=== PATIENT | male | born 1950 | race Caucasian/White ===

== ENCOUNTER 2019-05-03 02:35 | Inpatient (IN) | payer MEDICARE ==
[~2019-05-03] VITALS: Ht 177.8 cm; Wt 122.5 kg
[2019-05-03] MEDS ORDERED: MAGNESIUM HYDROXIDE 2,400 MG/30 ML ORAL.SUSP. PO PRN (03:00)
[2019-05-03] MEDS ORDERED: METHYL SALICYLATE/MENTHOL TOPICAL OINTMENT 57GM TUBE. TP PRN (03:00)
[2019-05-03] MEDS ORDERED: MAG HYDROX/AL HYDROX/SIMETH 30 ML ORAL.SUSP PO PRN (03:00)
[2019-05-03] MEDS ORDERED: ACETAMINOPHEN 325 MG TABLET PO PRN (03:30)
[2019-05-03] MEDS ORDERED: ALBUTEROL SULFATE 2.5 MG/3 ML NEBU. IH PRN (03:30)
[2019-05-03] MEDS ORDERED: DEXTROSE 50% 25 GM / 50ML DISP.SYRIN. IV PRN ×3 (03:30→13:00)
[2019-05-03] MEDS ORDERED: POTASSIUM CHLORIDE 20 MEQ TABLET.ER. PO PRN (03:30)
[2019-05-03 03:38] VITALS: BP 160/90
[2019-05-03 04:01] LABS: BILIRUBIN,URINE NEG (NEG); CLARITY,URINE HAZY; COLOR,URINE YELLOW; GLUCOSE,URINE NEG (NEG); NITRITE,URINE POS (NEG); RBC,URINE OCC /HPF (0-2); UROBILINOGEN,URINE 0.2 mg/dL (0.2 mg/dL); WBC,URINE >40 /HPF (0-4)
[2019-05-03 04:02] LABS: BACTERIA,URINE MANY /HPF (0-FEW); SQUAMOUS EPITHELIAL CELL,UR OCC /LPF
[2019-05-03] MEDS ORDERED: OMEP40CA45 PO (04:13)
[2019-05-03] MEDS ORDERED: MELO7.5T29 PO (04:13)
[2019-05-03] MEDS ORDERED: FURO40TA4 PO (04:13)
[2019-05-03] MEDS ORDERED: POTA20TA4 PO (04:13)
[2019-05-03] MEDS ORDERED: ALBU2.5V8 IH (04:13)
[2019-05-03] MEDS ORDERED: ACET325T9 PO (04:13)
[2019-05-03] MEDS ORDERED: ASPI-612 PO (04:13)
[2019-05-03] MEDS ORDERED: ALPR0.5T6 PO (04:13)
[2019-05-03] MEDS ORDERED: METF10007 PO (04:13)
[2019-05-03] MEDS ORDERED: ESCITALOPRAM OX20 MG PO (04:13)
[2019-05-03] MEDS ORDERED: GABA600T7 PO (04:13)
[2019-05-03] MEDS ORDERED: ATEN50TA PO (04:13)
[2019-05-03] MEDS ORDERED: MAGN400T5 PO (04:13)
[2019-05-03] MEDS ORDERED: LISI-334 PO (04:13)
[2019-05-03] MEDS ORDERED: IRON1TAB PO (04:13)
[2019-05-03] MEDS ORDERED: PRIM50TA24 PO (04:14)
[2019-05-03] MEDS ORDERED: INSU100I13 SQ (04:14)
[2019-05-03] MEDS ORDERED: TAMS0.4C97 PO (04:14)
[2019-05-03] MEDS ORDERED: TIZA4TAB2 PO (04:14)
--- NOTE | 2019-05-03 04:14 | NUR ---
Admission Note with Justification for Admission to [facility] Patient admitted to [facility] for protective oversight for emergency stabilization of acute psychiatric crisis. Pt admitted from: Hospital ER Mode of arrival: EMS Accompanied By: EMS Precipitating behaviors that initiated intake and admission: PT made SI statements but then retracted them feels very depressed and sad, having difficulty because he cannot do things he used to do has had significant increases in his weakness over the recent past. Wants to get help to get better and feel better. Description of failure of out patient attempts at stabilization in previous setting list behavior and medication trials: Attempted to adjust meds and do therapy. Behaviors and assessment findings upon admission: Anxious but cooperative on admit. Denies SI Plan: Admit for protective oversight for adjustment and stabilization of medications, behaviors and mood. Intense treatment regimen including groups, medication adjustments, therapy, consistent regimen for ADL's, self care, and sleep hygiene. Daily monitoring by Inpatient staff, Psychiatry, and Medical Physician.
[2019-05-03] MEDS: ALPRAZolam 0.5 MG TABLET PO PRN ×3 (05:02→14:01)
[2019-05-03] MEDS: PRIMIDONE 50 MG TABLET PO SCH ×2 (05:03→20:21)
[2019-05-03] MEDS: MELOXICAM 7.5 MG TABLET PO SCH ×2 (05:03→20:20)
[2019-05-03] MEDS: tiZANidine 4 MG TABLET. PO SCH ×2 (05:04→20:21)
--- NOTE | 2019-05-03 05:48 | NUR ---
Nursing Note Pt dozed off briefly, then awoke complaining that he had not had any medications since he left his home at 130 pm the previous day. Told the patient that we were working on his meds and orders but that there was a process that involves patient safety with medication administration. Educated him on the fact that orders and meds must be carefully approved by pharmacy department, and that their is only 1 on duty for both hospitals. I graciously asked him to be patient with us because the process takes time since he was admitted after hours. We are at the mercy of other departments and it is unsafe to jean-baptiste. Meds were ordered and approved and his night meds were given early in the am. Now patient complains of feeling sweaty with cramping to his legs. Blood sugar 122 at this time. Snack given. Also patient stated during the admission process that he was exploring the option of going to [facility] in [place] but they refused him due to age and medical concerns, he started to get impatient and belligerent with the staff during shift change because the process was taking to long in his opinion. Then his had threatened to take him AMA but the ED told him they would dispatch police to his home and take him back to the hospital to admit him involuntarily to the [facility] on a hold with a court order. I explained to him that we had no control over the delays in care from other facilities, and that once we received the call, the process progressed quickly on our end and his admit was approved within a short time frame. He seems to understand once processes were explained, although the patient seems to perseverate on his medical history and the fact that his delay medications were the reason he was still awake in the first place. I validated his feelings and listened to his complaints but was also firm with him regarding how things work as an inpatient.
[2019-05-03 06:01] VITALS: BP 161/80
[2019-05-03 06:40] LABS: BASO % 1 % (0-3); EOS # 0.1 x10^3/uL (0.0-0.7); EOS % 2 % (0-3); HEMATOCRIT 41.2 % (39.0-53.0); HEMOGLOBIN 13.4 g/dL (13.0-17.5); LYMPH # 2.1 x10^3/uL (1.0-4.8); LYMPH % 30 % (24-48); MEAN CORPUSCULAR HEMOGLOBIN 27 pg (25-35); MEAN CORPUSCULAR HGB CONC 33 g/dL (31-37); MEAN CORPUSCULAR VOLUME 84 fL (79-100); MONO # 0.5 x10^3/uL (0.0-1.1); MONO % 7 % (0-9); NEUT # 4.1 x10^3uL (1.8-7.7); NEUT % 60 % (31-73); PLATELET COUNT 184 x10^3/uL (140-400); RED BLOOD COUNT 4.91 x10^6/uL (4.30-5.70); RED CELL DISTRIBUTION WIDTH 16.2 % (11.5-14.5); WHITE BLOOD COUNT 6.9 x10^3/uL (4.0-11.0)
[2019-05-03 06:54] LABS: ALBUMIN 3.7 g/dL (3.4-5.0); ALBUMIN/GLOBULIN RATIO 1.1 (1.0-1.7); CREATININE 0.8 mg/dL (0.7-1.3); GFR 96.4; MAGNESIUM 1.5 mg/dL (1.8-2.4); POTASSIUM 4.1 mmol/L (3.5-5.1); TOTAL PROTEIN 7.2 g/dL (6.4-8.2)
[2019-05-03] MEDS: INSULIN LISPRO 300 UNITS/3 ML VIAL. SQ SCH ×3 (08:00→17:00)
[2019-05-03] MEDS ORDERED: metFORMIN 500 MG TABLET PO ONE (08:00)
[2019-05-03] MEDS: ATENOLOL 50 MG TABLET PO SCH (08:29)
[2019-05-03] MEDS: GABAPENTIN 300 MG CAPSULE. PO SCH ×3 (08:29→20:19)
[2019-05-03] MEDS: PANTOPRAZOLE 40 MG TABLET. PO SCH (08:29)
[2019-05-03] MEDS: FUROSEMIDE 40 MG TABLET PO SCH (08:30)
[2019-05-03] MEDS: MAGNESIUM OXIDE 400 MG TABLET PO SCH ×3 (08:30→20:19)
[2019-05-03] MEDS: CITALOPRAM 20 MG TABLET. PO SCH (08:30)
[2019-05-03] MEDS: LISINOPRIL 20 MG TABLET PO SCH (08:30)
[2019-05-03] MEDS: ASPIRIN ENTERIC COATED 81 MG TABLET.DR. PO SCH (08:30)
[2019-05-03] MEDS: TAMSULOSIN 0.4 MG CAP.ER.24H. PO SCH (08:31)
[2019-05-03] MEDS: MULTIVITAMIN with MINERAL TABLET. PO SCH (08:31)
[2019-05-03] MEDS: INSULIN GLARGINE SYRINGE. SQ SCH ×2 (08:33→20:25)
[2019-05-03] MEDS ORDERED: NON FORMULARY ITEM (Gabapentin 600 MG) PO SCH (09:00)
[2019-05-03] MEDS ORDERED: tiZANidine 4 MG TABLET. PO SCH (09:00)
[2019-05-03 09:16] VITALS: BP 161/80
--- NOTE | 2019-05-03 11:37 | NUR ---
During consult with , patient complained of leg cramps and requested PRN Klor-Con, which he received at 1130.
--- NOTE | 2019-05-03 13:17 | CONS ---
DATE OF CONSULTATION: 05/03/2019 REASON FOR CONSULTATION: Medical management. HISTORY OF PRESENT ILLNESS: The patient is a 68-year-old male patient who was admitted to this unit on account of increasing depression with suicidal ideation with a plan. He was thinking of giving himself high doses of short-acting insulin, taking a handful of pills while his was gone. He has had worsening peripheral neuropathy with frequent falls, which made his suicidal ideation as apparently his neurologist told him that his neuropathy is only getting worse, all this in a obviously background of major depressive disorder. Medically, he has multitude of medical problems including type 2 diabetes with severe peripheral neuropathy, hypertension, hyperlipidemia, obstructive sleep apnea, chronic back and neck pain, coronary artery disease, carpal tunnel syndrome and chronic obstructive pulmonary disease. PAST SURGICAL HISTORY: Significant for coronary artery bypass graft surgery, has also cervical laminectomy and back surgery twice. ALLERGIES: He is allergic to ZETIA, DETEMIR INSULIN, and SIMVASTATIN. MEDICATIONS: He is currently on following medications: He is on albuterol sulfate 2 puffs every 4 hours, Flomax 0.4 mg at bedtime, tizanidine 4 mg daily, Multigen Plus Caplet 1 tablet once a day, atenolol 50 mg once a day, lisinopril 20 mg once a day, aspirin enteric-coated 81 mg once a day, meloxicam 7.5 mg once a day, Tylenol 650 mg every 4 hours, primidone 100 mg at bedtime, gabapentin 600 mg 2 times a day, escitalopram oxalate 20 mg daily, alprazolam 0.5 mg twice a day, potassium chloride 20 mEq as needed and furosemide 40 mg once a day. He is also on magnesium oxide 400 mg 3 times a day, omeprazole 40 mg once a day, metformin 1000 mg 3 times a day with meals and Lantus SoloSTAR 70 units subcutaneously twice a day. FAMILY HISTORY: Noncontributory. SOCIAL HISTORY: He is , has 4 daughters. He does not smoke, drink alcohol or use any recreational drugs. 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 REVIEW OF SYSTEMS: As per history of present illness. PHYSICAL EXAMINATION GENERAL: When I examined him, he was sitting comfortably in his chair, in no apparent respiratory distress. No pallor, jaundice, cyanosis or thyromegaly. No jugular venous distention. No lower limb edema. VITAL SIGNS: His heart rate was 66, blood pressure was 161/80, temperature was 98.1, respiratory rate was 18 and oxygen saturation was 98%. HEAD, EYES, EARS, NOSE AND THROAT: Showed normocephalic, atraumatic. NECK: Supple. HEART: Showed normal first and second heart sounds. No gallop, rub or murmur. CHEST: Clear to auscultation. No crepitation or rhonchi. ABDOMEN: Distended, soft, nontender. No guarding or rigidity. No organomegaly. All hernial orifice intact. Bowel sounds normal. NEUROLOGIC: He is awake, alert, responding appropriately. All his cranial nerves are intact. EXTREMITIES: He moves extremities without difficulty. He ambulates with a walker. LABORATORY DATA: His lab work showed a white cell count of 6900, hemoglobin 13, hematocrit 41, MCV 84 and platelet count of 184,000. Serum sodium was 140, potassium 4.1, chloride 103, bicarbonate 25, anion gap of 12, BUN 15, creatinine 0.8, estimated GFR was 96 mL per minute. His blood glucose was 147, calcium was 9, magnesium was 1.5. Total bilirubin, AST, ALT, alkaline phosphatase were normal. Total protein was 7.2, albumin was 3.7. His urinalysis showed the urine was yellow, hazy with a pH of 7, specific gravity of 1.020. Urine was negative for protein, glucose, ketones, trace of blood, positive for nitrite and large amount of leukocyte esterase, occasional rbc's, more than 40 wbc's, and many bacteria. IMPRESSION: In summary, this is a 68-year-old male patient who was admitted on account of increasing depression with suicidal thoughts with plan. He was thinking of giving himself high doses of short-acting insulin, taking handful of pills while his was gone. He apparently has had worsening peripheral neuropathy with frequent falls, which made him thing about suicidal attempt, knowing that things will not get any better according to him, all this in a background of major depressive disorder. He has a multitude of medical problems including type 2 diabetes, severe peripheral neuropathy. He probably has also degenerative disk disease and bilateral radiculopathy from the lumbar area, benign prostatic hypertrophy, coronary artery disease, carpal tunnel syndrome, chronic obstructive pulmonary disease and obstructive sleep apnea; however, generally the patient seemed to be medically stable. His vital signs are generally within acceptable range except his blood pressure seems to be slightly elevated. All his lab works are within acceptable range. He does have a large amount of leukocyte esterase, more than 40 wbc's and too many bacteria and his urine should be submitted for culture and sensitivity. Other than that, even his blood sugar seems to be well controlled, I will obviously follow his labs that are still pending at the time of this dictation and make any necessary recommendation. Thank you, Dr. Castillo, for allowing me to participate in the care of this patient. MILLA FALL MD DR: ANABELLE/yaima JOB#: [id number] / [id number]
--- NOTE | 2019-05-03 13:53 | NUR ---
New order for magnesium oxide 800mg QH for 3h received via telephone from Dr. Freed for magnesium level of 1.5. Patient complaining of painful muscle spasms in BLE this shift.
[2019-05-03] MEDS ORDERED: MAGNESIUM OXIDE 400 MG TABLET PO ONE ×3 (14:00→16:00)
[2019-05-03] MEDS: ACETAMINOPHEN 325 MG TABLET PO PRN ×2 (14:01→20:26)
[2019-05-03 14:59] LABS: THYROID STIM HORMONE (TSH) 2.002 uIU/mL (0.358-3.740)
[2019-05-03 15:53] VITALS: BP 140/87
[2019-05-03] MEDS: metFORMIN 500 MG TABLET PO SCH (16:13)
[2019-05-03 17:07] LABS: THYROXINE 6.9 ug/dL (4.5-12.0)
[2019-05-03 17:31] LABS: CALCIUM 10.1 mg/dL (8.5-10.1); CREATININE 0.9 mg/dL (0.7-1.3); GFR 84.2; TOTAL BILIRUBIN 0.8 mg/dL (0.2-1.0); TOTAL PROTEIN 7.9 g/dL (6.4-8.2)
[2019-05-03 17:41] LABS: POTASSIUM 5.2 mmol/L (3.5-5.1)
--- NOTE | 2019-05-03 18:00 | NUR ---
Patient is alert and oriented x 4, speech is clear, able to make wants and needs known and able to verbalize understanding of others. Denies any SI during this shift. Patient is pleasant and cooperative with all cares from staff. No negative moods or behaviors observed this shift. Patient's cymbalta dose was increased from 30mg to 60mg starting tomorrow morning per Dr. Branham.
--- NOTE | 2019-05-03 18:03 | NUR ---
Patient is alert and oriented x 4 this shift. Speech is clear, able to make wants and needs known and able to verbalize understanding of others. Cooperative with all cares and medication administration this shift. No negative moods or behaviors observed. Patient denies any SI at this time. New order for increase of cymbalta from 30mg to 60 mg starting tomorrow am per Dr. Branham.
[2019-05-03] MEDS ORDERED: PRIMIDONE 50 MG TABLET PO SCH (21:00)
[2019-05-03] MEDS ORDERED: MELOXICAM 7.5 MG TABLET PO SCH (21:00)
--- NOTE | 2019-05-04 00:02 | PSYEV ---
DATE OF SERVICE: 05/03/2019 REASON FOR ADMISSION: This 68-year-old male was admitted to [facility] inpatient at [place], [place] as a transfer from the Emergency Department from [place] because the patient has been expressing suicidal thoughts and plans including wanting to overdose on his medications and also injecting insulin as an overdose to kill himself. HISTORY OF PRESENT ILLNESS: The patient on arrival was very demanding and also his threatening to take him home because of his demands. The patient settled down when we came to the unit almost oracle consultant. CHIEF COMPLAINT: "I have been depressed most of my life. I have gone through so many problems in my life. I have got PTSD and I'm upset because the neurologist did not help me with my neuropathy" secondary to diabetes, apparently increased his gabapentin to 600 mg t.i.d. from 300 mg t.i.d. and thinks it is because of the increase in gabapentin and he became upset with the doctor. HISTORY OF PRESENT ILLNESS: The patient has a long history of psychiatric problems including depression, apparently had at least 2 hospitalizations before and had some counseling in the past. 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 The patient also had multiple losses. The patient thinks this is the anniversary of the two children , apparently 1 from stillbirth. The patient states this is not the good month, he usually gets depressed. The patient denies of any alcohol or drugs. The patient denies of any homicidal thoughts, but the patient seems to be angry and is upset because he is not getting the help that he needs for his neuropathy and apparently he has problems walking, apparently had several falls recently, losing his balance. The patient is mainly concerned about his medical condition and thinks he is getting worse. The patient admits to one suicidal attempt in the past and in 1994, he had issues with his second . Apparently, he handed over his gun to her telling her to shoot him because she wanted to leave him. The patient admits to having codependency issues. The patient also having difficulty dealing with the stressors at home and still dealing with the multiple losses in his life. PAST PSYCHIATRIC HISTORY: The patient was hospitalized in 1989 he to [facility] for depression and PTSD, was there for a couple of weeks again in 1994 to [facility], apparently was threatening suicide at the time and it was a court ordered admission. The patient currently not seeing a psychiatrist, seeing a neurologist for his chronic pain syndrome. PAST MEDICAL HISTORY: The patient has medical physical problems, coronary artery disease, COPD, status post cerebrovascular accident, diabetes mellitus, GERD, hypertension, diabetic neuropathy, sleep apnea. The patient also had a cardiac catheterization in the past and surgery for carpal tunnel release, cataract extraction, cholecystectomy, also CABG, also vasectomy and tonsillectomy. CURRENT MEDICATIONS: Include insulin lispro 0-90 units t.i.d., metformin 1000 mg b.i.d., gabapentin 600 mg t.i.d. that was decreased to 300 mg t.i.d. at the patient's request. The patient is also on Lantus 70 units b.i.d., Celexa 40 mg daily, Flomax 0.4 mg daily, lisinopril 20 mg daily, atenolol 50 mg daily, aspirin 81 mg daily, Zanaflex 40 mg at night, primidone 100 mg at night, meloxicam 7.5 mg at night, potassium chloride 20 mEq daily p.r.n., Xanax 0.5 mg b.i.d. p.o. p.r.n. and also Cymbalta 60 mg daily. The patient's lab reviewed. Glucose was 147. The patient's LDL was 61, HDL 56. PSYCHOSOCIAL HISTORY: The patient has high school education. 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 Apparently, he claims that he has symptoms of PTSD secondary to the service and the trauma he witnessed. The patient also states he has a lot of problems growing up of depression, anger issues. First marriage ended after 9 years because left him for another person. Then they got back together, the second time and then she decided to leave him, it was 1994 and that was the time, he had handed over the gun to his asking her to kill him because he did not want her to leave. The patient had third marriage. They have been for almost 22 years. The patient has 3 daughters and 1 stepdaughter. FAMILY HISTORY: The patient denies of any psychiatric illness in the family. No addiction. Alcohol and substance abuse, denies. MENTAL STATUS EXAMINATION: The patient appeared to be of his stated age, casually dressed, obese and able to make eye contact. The patient's speech clear, monotone, decreased rate and rhythm. His affect and mood showed he is depressed, anxious, also angry, more passive aggressive. The patient also expressed anger towards his neurologist because he did not support him with his chronic pain and trying to help him. The patient admits to having problems with depression most of his life. Poor coping skills, codependency issues. The patient also having problems with impulse control and low frustration tolerance. The patient currently denies of having suicidal thoughts. States he wants to get better. He is oriented to time, place and person. His memory is intact for both past and present. Judgment fair. Insight limited. The patient appears to be functioning on an average level of intelligence. STRENGTHS: Fairly in good health, supportive family, retired. WEAKNESSES: The patient has issues with codependency, anger issues, poor coping skills, having difficulty coping with his chronic pain. ADMITTING DIAGNOSES: AXIS I: 1. Major depression, recurrent, without psychotic features, moderate. 2. Generalized anxiety disorder. 3. Posttraumatic stress disorder. AXIS II: Dependent personality disorder. AXIS III: Coronary artery disease, status post cerebrovascular accident, chronic obstructive pulmonary disease, diabetes mellitus, diabetic neuropathy disease, hypertension, neuropathy, sleep apnea. INITIAL TREATMENT PLAN: The patient will be admitted to inpatient program. The patient will be seen by Dr. Ty for followup. The patient will have routine lab work. The patient will continue on the above medication except gabapentin was decreased to 300 mg t.i.d. and the patient is also on Cymbalta 60 mg daily and Celexa 40 mg daily. The patient will be involved in the program including individual therapy, group therapy, activity therapy. LENGTH OF STAY: 7-10 days. DISCHARGE CRITERIA: The patient at least to show some stability for 3 days without expressing any suicidal or homicidal thoughts and also improvement in his depression. KEYONA ROSALES MD DR: VERENICE/yaima JOB#: [id number] / [id number]
[2019-05-04 00:06] LABS: HEMOGLOBIN A1C 6.9 % (4.8-5.6)
--- NOTE | 2019-05-04 00:20 | NUR ---
Pt laying in bed relaxing on assessment. Pt interactive with staff. Pt complaint with medication and assessment. Pt reports mild back pain, PRN tylenol given as ordered.
[2019-05-04 06:00] VITALS: BP 154/81
[2019-05-04 06:55] LABS: ALBUMIN 3.8 g/dL (3.4-5.0); CALCIUM 9.5 mg/dL (8.5-10.1); CREATININE 0.8 mg/dL (0.7-1.3); GFR 96.4; TOTAL BILIRUBIN 0.9 mg/dL (0.2-1.0); TOTAL PROTEIN 7.5 g/dL (6.4-8.2)
[2019-05-04 08:00] VITALS: BP 145/91
[2019-05-04] MEDS: INSULIN LISPRO 300 UNITS/3 ML VIAL. SQ SCH ×3 (08:00→17:34)
[2019-05-04] MEDS: MULTIVITAMIN with MINERAL TABLET. PO SCH (08:07)
[2019-05-04] MEDS: FUROSEMIDE 40 MG TABLET PO SCH (08:07)
[2019-05-04] MEDS: MAGNESIUM OXIDE 400 MG TABLET PO SCH ×3 (08:07→19:55)
[2019-05-04] MEDS: metFORMIN 500 MG TABLET PO SCH ×2 (08:07→17:14)
[2019-05-04] MEDS: DULoxetine HCL 60 MG CAPSULE.DR PO SCH (08:07)
[2019-05-04] MEDS: GABAPENTIN 300 MG CAPSULE. PO SCH ×3 (08:07→19:56)
[2019-05-04] MEDS: PANTOPRAZOLE 40 MG TABLET. PO SCH (08:07)
[2019-05-04] MEDS: ASPIRIN ENTERIC COATED 81 MG TABLET.DR. PO SCH (08:07)
[2019-05-04] MEDS: TAMSULOSIN 0.4 MG CAP.ER.24H. PO SCH (08:11)
[2019-05-04] MEDS: ATENOLOL 50 MG TABLET PO SCH (08:11)
[2019-05-04] MEDS: CITALOPRAM 20 MG TABLET. PO SCH (08:12)
[2019-05-04] MEDS: LISINOPRIL 20 MG TABLET PO SCH (08:12)
[2019-05-04] MEDS: INSULIN GLARGINE SYRINGE. SQ SCH ×2 (08:13→20:41)
--- NOTE | 2019-05-04 10:19 | NUR ---
Nursing Note Patient is in the dining room, pleasant, and social. He is compliant with medications and cooperative with assessments. He is AOx4. He denies depression and SI.. Patient has been interactive with both staff and other patients. He is currently in the day room participating in group. Will continue to monitor.
--- NOTE | 2019-05-04 12:15 | TX PLAN ---
Interdisciplinary Tx Plan Admission Information May 03, 2019 at 02:35 Legal Status (on Admission): Voluntary DPOA/Guardian Name: Pt is a self-sign Contact Other Contact Allergies: Coded Allergies: ezetimibe (Verified Allergy, Severe, Acute Renal Failure, 05/03/19) simvastatin (Verified Allergy, Severe, Acute Renal Failure, 05/03/19) insulin detemir (Verified Allergy, Mild, INJECTION SITE REACTION, 05/03/19) Reaction near injection site Diagnoses Reasons for Admission: Depressed, Sig. Change Sleep, Suicidal ideation Problem in Patient's Words: I have a lot of anxiety and depression. I'm a worryer and immediately go to the worse scenario. Additional Admission Comments: According to the intake, pt came to the ED at 1530 with the plan to OD on insulin with an increase in depression. Problems Active Problems: Increase in depression Increase in anxiety Mood lability Inactive Problems: Compliant with Medications Pt Strengths/Limitations Ability for [place]: Good Cognitive Functioning/Ability: Good Communication Skills/Ability: Good Financial Resources: Good Insight/Judgement: Good Intellectual Ability: Good Physical Health: Poor Social Skills: Good Stability in Family: Good Stability in School/Work: Good Verbal Skills: Good Discharge Criteria Discharge Criteria: Able meet basic life need, Able to meet health needs, Adequate arrangements @DC, Verbal commit aftercare, Adequate self-care, Improved behavior, Improved mood/thought Preliminary Discharge Plan Preliminary DC Plan: Current Living Arrange. Special Precautions Fall Risk: Low Initial D/C Plan Pt will plan to discharge home with community services once stable. Identified Discharge Needs: Pt will plan to discharge back home with his and community services. Currently Utilized Resources Currently Utilized Resources/P: has PCP and neurologist Referrals Community Resources: counseling and psychiatry follow-up Identified Problems/Hx/Goals Objectives/Short-Term Goals Short Term Goals: Dec. Anxiety/Panic, Dec. Symp. Depression, Medication Stabilization, Promote Coping Skill Short Term Goals in Patient's: Work on feeling less depressed and less labile Interventions/Frequency Staff Interventions/Frequency&: Psychiatrist to follow up at least 3x per week. SW to follow up at least 2x per week. 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 Education: Pt graduated high school and has some college credits in Criminal Justice. Community Follow-up Will have appts with PCP and neurology; new appt set up for counseling Community Provider/Family Inpu: "He needs someone to talk to on a manager terminal basis/regular basis". 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 He will plan to participate in his care while on [facility]. YOSHI YOUNG May 04, 2019 12:15
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
[2019-05-04] MEDS: ACETAMINOPHEN 325 MG TABLET PO PRN ×2 (13:06→20:39)
[2019-05-04 16:42] VITALS: BP 162/82
[2019-05-04] MEDS: MELOXICAM 7.5 MG TABLET PO SCH (19:55)
[2019-05-04] MEDS: tiZANidine 4 MG TABLET. PO SCH (19:55)
[2019-05-04] MEDS: PRIMIDONE 50 MG TABLET PO SCH (19:56)
--- NOTE | 2019-05-04 20:00 | NUR ---
Pt sitting up in the dayroom, visiting with other pts. Pt reports that he had a really good day today. He talked with his daughters [id number](former manufacturing operations manager/counselor) who agreed to be his "Soul counselor" when he is having bad days at home. Pt is denying SI a this time, and expressing his desire to get home to his . Pt is compliant with assessment and medications whole.
--- NOTE | 2019-05-04 23:33 | PN ---
DATE: 05/04/2019 SUBJECTIVE: The patient was seen today, met with the staff, chart reviewed. Staff reports no major behavior problems. Apparently, slept better, did not present with any anger or anxiety. The patient is accepting of his stay here now. OBSERVATION: VITAL SIGNS: Temperature 97.4, blood pressure 154/81, pulse of 58, respiration 18, O2 sat 96%. GENERAL: Slept about 7 hours last night. The patient has been participating in all the activities. The patient is able to verbalize his feelings. The patient states that he has some arguments with his with regard to her smoking and apparently he quit smoking long time ago and he did want her to smoke at home. The patient admits to having problems with coping skills, get frustrated easily, also poor impulse control, low frustration tolerance. MEDICATIONS: The patient's current medications include Cymbalta 60 mg daily, gabapentin 600 mg t.i.d., Celexa 40 mg daily, lisinopril 20 mg daily, Xanax 0.5 mg b.i.d. p.o. The patient is not having any side effects to the medications. LABORATORY DATA: The patient's lab reviewed. Fluctuating blood sugar. The patient's AST was slightly elevated at 41. The patient's GFR was 96.4, BUN and creatinine ratio 33. The patient's potassium was slightly elevated to 5.2, magnesium 1.7. ASSESSMENT: 1. Major depression, recurrent with psychotic features, moderate. 2. Generalized anxiety disorder. 3. Posttraumatic stress disorder. PLAN: To continue with the treatment. We will continue to monitor his behavior problems, depression, adjust the medication accordingly and continue to focus on working through some of his problems and counseling. LENGTH OF STAY: 7-10 days. KEYONA ROSALES MD DR: VERENICE/yaima JOB#: [id number] / [id number]
--- NOTE | 2019-05-05 01:53 | EKG ---
[address] [address] Test Date: 2019-05-04 Test Time: 10:25:09 Pat Name: LESA DELONG Department: [facility] Gender: M Last Trimmer: TYLOR : 1950 Requested By: KEYONA ROSALES Order Number: [id number] Reading MD: Measurements Intervals [place] Rate: 63 P: 75 IL: 144 QRS: 6 QRSD: 96 T: 56 QT: 412 QTc: 425 Interpretive Statements SINUS RHYTHM VENTRICULAR PREMATURE COMPLEX(ES) ABNORMAL ECG RI6.02 No previous ECG available for comparison
[2019-05-05] MEDS: ACETAMINOPHEN 325 MG TABLET PO PRN (04:31)
[2019-05-05 05:50] VITALS: BP 124/77
[2019-05-05] MEDS: INSULIN LISPRO 300 UNITS/3 ML VIAL. SQ SCH ×3 (08:00→17:17)
[2019-05-05] MEDS: GABAPENTIN 300 MG CAPSULE. PO SCH ×3 (08:17→20:28)
[2019-05-05] MEDS: metFORMIN 500 MG TABLET PO SCH ×2 (08:17→17:18)
[2019-05-05] MEDS: PANTOPRAZOLE 40 MG TABLET. PO SCH (08:17)
[2019-05-05] MEDS: ARIPiprazole 2 MG TABLET PO SCH (08:17)
[2019-05-05] MEDS: TAMSULOSIN 0.4 MG CAP.ER.24H. PO SCH (08:17)
[2019-05-05] MEDS: FUROSEMIDE 40 MG TABLET PO SCH (08:17)
[2019-05-05] MEDS: MAGNESIUM OXIDE 400 MG TABLET PO SCH ×3 (08:17→20:28)
[2019-05-05] MEDS: DULoxetine HCL 60 MG CAPSULE.DR PO SCH (08:17)
[2019-05-05] MEDS: LISINOPRIL 20 MG TABLET PO SCH (08:17)
[2019-05-05] MEDS: CITALOPRAM 20 MG TABLET. PO SCH (08:17)
[2019-05-05] MEDS: ASPIRIN ENTERIC COATED 81 MG TABLET.DR. PO SCH (08:17)
[2019-05-05] MEDS: ATENOLOL 50 MG TABLET PO SCH (08:18)
[2019-05-05] MEDS: MULTIVITAMIN with MINERAL TABLET. PO SCH (08:18)
[2019-05-05] MEDS: INSULIN GLARGINE SYRINGE. SQ SCH ×2 (09:17→20:56)
--- NOTE | 2019-05-05 10:27 | NUR ---
Nursing Note Patient was in the dining room, pleasant, and social. He is compliant with medications whole and cooperative with assessment. He is AOx4. He denies depression and SI at this time and stated "I found a new purpose now, and grateful I my technical sme friend is willing to help me during my bad days". He reports he had a good night sleep and ready to go home to his . He is interactive with both staff and other patients. He is currently in the ay room participating in group.
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
--- NOTE | 2019-05-05 12:29 | NUR ---
SW contacted pt to discuss pt wish to leave and the concerns of wanting to make appointments for him prior to discharge. All parties of the team would prefer appointments set up. Pt agreed and stated that they have more resources set up within the family for added support; but wants counseling set up for pt. Pt questioned if SW would be able to do counseling and SW explained that she is not a clinical counselor but could find an DIRECTOR CORPORATE COMPLIANCE to meet with him to make him feel more comfortable within conversation. Pt is fine with him discharging later today if that is possible. SW will get all appointments set up, speak with the psychiatrist and should have an answer for Sunshine this afternoon at 1600.
[2019-05-05 15:54] VITALS: BP 133/74
[2019-05-05] MEDS: tiZANidine 4 MG TABLET. PO SCH (20:28)
[2019-05-05] MEDS: PRIMIDONE 50 MG TABLET PO SCH (20:28)
[2019-05-05] MEDS: MELOXICAM 7.5 MG TABLET PO SCH (20:28)
--- NOTE | 2019-05-05 21:47 | DS ---
DATE OF DISCHARGE: 05/05/2019 FINAL DIAGNOSES: AXIS I: 1. Major depression, recurrent, without psychotic features, moderate. 2. Generalized anxiety disorder. 3. Posttraumatic stress disorder. AXIS II: Dependent personality disorder. AXIS III: Coronary artery disease, status post cerebrovascular accident, chronic obstructive pulmonary disease, diabetes mellitus, diabetic neuropathy, hypertension, sleep apnea. REASON FOR ADMISSION: This 68-year-old male was admitted to [facility] inpatient at [place], [place] as a transfer from the emergency department from [place] because of having suicidal thoughts and plans including wanting to overdose on his medications and also injecting insulin to end his life. HISTORY OF PRESENT ILLNESS: The patient on arrival was demanding and also his threatened to take him home because of his demands, but the patient settled down and finally he agreed to stay for treatment. 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 The patient states that he developed PTSD because of witnessing the trauma around him. The patient also is having multiple physical problems and suffers from severe neuropathy. The recent event was triggered after seeing the neurologist. Apparently, he recommended doubling the dose of the gabapentin. On return home, he was really upset because he was not given the right help to control his pain and also thought doubling the dose of gabapentin triggered off his depression and mood swings. The patient apparently settled down on the unit. Did not present with any major problems. Did not express any suicidal or homicidal thoughts. HOSPITAL COURSE: The patient had a complete lab work, which were all within normal range except for elevated blood sugar. The patient was treated with Abilify 2 mg daily; Cymbalta 60 mg daily, which he was taking prior to coming here; he was also on insulin lispro, metformin 1000 mg b.i.d.; gabapentin 600 mg t.i.d.; Lantus 70 units b.i.d.; Celexa 40 mg daily; Flomax 0.4 mg daily; lisinopril 20 mg daily; Lasix 40 mg daily; atenolol 50 mg daily; aspirin 81 mg daily; Protonix 40 mg daily; Zanaflex 40 mg at night; primidone 100 mg at night; meloxicam 7.5 mg at night; Xanax 0.5 mg b.i.d. p.r.n.; he was also on albuterol inhaler. The patient did improve, did not present with any major problems. The patient has requested for discharge because he felt he could do with the outpatient treatment seeing a counselor, not seeing a psychiatrist. The patient also states he is not comfortable staying on the unit because of the age difference and also admitted that he is upset about all the problems going on with the other patients because of the behaviors and also people having dementia. AFTERCARE PLAN: The patient was discharged with recommendation to continue with the outpatient treatment. Continue with the above medications. The patient agreed to see a psychiatrist and stay in counseling. The patient will return home to his . The patient at the time of discharge was not expressing any suicidal or homicidal thoughts. The patient's condition improved. KEYONA ROSALES MD DR: VERENICE/yaima JOB#: [id number] / [id number]
--- NOTE | 2019-05-05 22:35 | NUR ---
Nsg Note: Patient in day room at time of medication administration and assessments, patient was calm, cooperative, compliant. Patient A&Ox4. Patient expressed he is ready to go home. No other notable behaviors at this time.
[2019-05-06] MEDS: ACETAMINOPHEN 325 MG TABLET PO PRN ×2 (01:40→09:34)
[2019-05-06] MEDS ORDERED: ARIP2TAB35 PO (02:20)
[2019-05-06] MEDS ORDERED: CITA40TA5 PO (02:21)
[2019-05-06] MEDS ORDERED: DULO60CA6 PO (02:22)
[2019-05-06] MEDS ORDERED: INSU100C SQ (02:23)
[2019-05-06] MEDS ORDERED: MAG-95 PO (02:25)
[2019-05-06] MEDS ORDERED: METH57CR17 TP (02:26)
[2019-05-06] MEDS ORDERED: MAGN2400 PO (02:26)
[2019-05-06] MEDS ORDERED: PANT40TA3 PO (02:27)
[2019-05-06 05:55] VITALS: BP 117/75
[2019-05-06] MEDS: INSULIN LISPRO 300 UNITS/3 ML VIAL. SQ SCH (08:00)
[2019-05-06] MEDS: MAGNESIUM OXIDE 400 MG TABLET PO SCH (08:46)
[2019-05-06] MEDS: TAMSULOSIN 0.4 MG CAP.ER.24H. PO SCH (08:47)
[2019-05-06] MEDS: ASPIRIN ENTERIC COATED 81 MG TABLET.DR. PO SCH (08:47)
[2019-05-06] MEDS: DULoxetine HCL 60 MG CAPSULE.DR PO SCH (08:47)
[2019-05-06] MEDS: PANTOPRAZOLE 40 MG TABLET. PO SCH (08:47)
[2019-05-06] MEDS: ATENOLOL 50 MG TABLET PO SCH (08:47)
[2019-05-06] MEDS: metFORMIN 500 MG TABLET PO SCH (08:47)
[2019-05-06] MEDS: CITALOPRAM 20 MG TABLET. PO SCH (08:47)
[2019-05-06 08:48] VITALS: BP 117/75
[2019-05-06] MEDS: MULTIVITAMIN with MINERAL TABLET. PO SCH (08:48)
[2019-05-06] MEDS: LISINOPRIL 20 MG TABLET PO SCH (08:48)
[2019-05-06] MEDS: GABAPENTIN 300 MG CAPSULE. PO SCH (08:48)
[2019-05-06] MEDS: ARIPiprazole 2 MG TABLET PO SCH (08:48)
[2019-05-06] MEDS: FUROSEMIDE 40 MG TABLET PO SCH (09:00)
--- NOTE | 2019-05-06 09:04 | NUR ---
[facility] Social Work Discharge Planning Form Patient Name LESA DELONG Admit Date: 05/03/19 DISCHARGE PLAN Discharge Destination: Home with and community services Care Assessment: N/A Level II Assessment: N/A Transportation: Pt to pick pt up around 1100 Special Instructions/Notes: Please fax medication list and discharge orders to the following fax number listed below. DISCHARGE TO HOME: Address: [address] [place] [address]; [place] [address] Responsible Libertarian: Pt is a self-sign [facility]; [address], [place] [address] Contact Information: Primary Care Follow Up: Dr. Steven Em Contact Information: [address], [place] [address] Appointment: 05/12/19 @ 1100 Counseling Follow-up: [facility] Contact Information: [address], [place] [address] Appointment: Pt will have to call and make the appointment himself. They do have openings for tomorrow. If paying out of pocket is not an option, the [facility] is available to see pt as well. Out of pocket fee per visit depending on income. $90-120 per visit. Urology Follow-Up: Dr. Enmanuel Lopez Contact Information: [address] [place] [address] [address]; [place] [address] Appointment: 06/03/19 @ 0179
[2019-05-06] MEDS: INSULIN GLARGINE SYRINGE. SQ SCH (09:38)
--- NOTE | 2019-05-06 11:15 | NUR ---
Transition Record was faxed to follow-up provider with the following elements: Reason for admission, procedures, tests, principal diagnosis, pending studies, patient instructions, 15/12 contact information for unit, phone number to obtain pending test results, plan for follow-up care, physician follow-up, advanced directive information, and medication list with dose, duration and instructions. This information was included in the following documents: History and physical, lab results, study results, progress notes, social work planning form, DC instruction form, patient visit summary, and medication reconciliation form. Date & time record faxed: 103 06 May 2019 Record faxed to: Dr. Em and Dr. Lopez Record discussed with/ report given to: Discharge education provided to patient and spouse including medications, follow up appointments, and complications. [facility] [place].
== END 2019-05-06 11:15 | disposition home or self-care (01) | DRG 885 ==
LOC: GEROPSY 02:35
PROVIDERS: ADMIT Psychiatry & Neurology Psychiatry; ATTEND Psychiatry & Neurology Psychiatry
DX: F33.3 Major depressive disorder, recurrent, severe with psychotic symptoms (principal); R45.851 Suicidal ideations; E11.42 Type 2 diabetes mellitus with diabetic polyneuropathy; E78.5 Hyperlipidemia, unspecified; F41.1 Generalized anxiety disorder; F03.90 Unspecified dementia, unspecified severity, without behavioral disturbance, psychotic disturbance, mood disturbance, and anxiety; F43.10 Post-traumatic stress disorder, unspecified; E11.65 Type 2 diabetes mellitus with hyperglycemia; F60.7 Dependent personality disorder; G47.33 Obstructive sleep apnea (adult) (pediatric); G89.29 Other chronic pain; I10 Essential (primary) hypertension; I25.10 Atherosclerotic heart disease of native coronary artery without angina pectoris; J44.9 Chronic obstructive pulmonary disease, unspecified; N40.0 Benign prostatic hyperplasia without lower urinary tract symptoms; Z79.4 Long term (current) use of insulin; Z79.82 Long term (current) use of aspirin; Z79.899 Other long term (current) drug therapy; Z81.8 Family history of other mental and behavioral disorders; Z86.73 Personal history of transient ischemic attack (TIA), and cerebral infarction without residual deficits; Z95.1 Presence of aortocoronary bypass graft
CPT/HCPCS: 36415; 80053; 80061; 81001; 82306; 82607; 82947; 83036; 83540; 83550; 83735; 84436; 84443; 84480; 85025; 86592; 87086; 87186; 93005; J1815; 97116